=== PATIENT | female | born 1960 ===

== ENCOUNTER → 2020-04-22 | Outpatient (CLI) | payer MEDICARE ==
--- NOTE | 2020-04-22 11:24 | WOMENS IMAGING REPORT ---
EXAM DESCRIPTION: BONE DENSITY HIP/SPINE IMAGES COMPLETED DATE/TIME: 04/22/2020 8:42 am REASON FOR STUDY: Z78.0 ASYMPTOMATIC MENOPAUSAL STATE Z78.0 ASYMPTOMATIC MENOPAUSAL STATE COMPARISON: None. TECHNIQUE: Dual-Energy X-ray Absorptiometry (DEXA) of the AP Spine and Hip. LIMITATIONS: None. FINDINGS: LUMBAR SPINE: The bone mineral density (BMD) measured from L1-L4 in the AP projection correlates with a T-score of 0.2, which is normal as defined by the World Health Organization. BMD Change vs Baseline: N/A HIP: The bone mineral density (BMD) measured in the left hip correlates with a T-score of -1.1 in the femo ral neck, which is osteopenia as defined by the World Health Organization. BMD Change vs Baseline: N/A 10 year Fracture Risk Assessment: Major Osteoporotic Fracture: 7.2% Hip Fracture: 0.4% IMPRESSION: 1. LUMBAR SPINE WHO CLASSIFICATION: NORMAL. 2. HIP WHO CLASSIFICATION: OSTEOPENIA. OVERALL ASSESSMENT: WHO CLASSIFICATION: OSTEOPENIA. COMMENT: The World Health Organization defines low BMD as follows: T-score: Normal: At or above -1.0 Osteopenia: Between -1.0 and -2.5 Osteoporosis: At or below -2.5 without fractures Established osteoporosis: At or below -2.5 with fractures In general, you may wish to consider: Diagnosis Treatment Follow-up DEXA Normal BMD Prevention 2-3 years Osteopenia Prevention/Therapy 1-2 years Osteoporosis Therapy Yearly TECHNICAL DOCUMENTATION: JOB ID: [id number] 2010 [employer] All Rights Reserved Reading location - IP/workstation name: [email or web address]
== END ==
LOC: WI 08:01
PROVIDERS: ATTEND Physician Assistant
DX: M85.88 Other specified disorders of bone density and structure, other site (principal); Z78.0 Asymptomatic menopausal state
CPT/HCPCS: 77080